=== PATIENT | female | born 1995 | race Caucasian/White ===

== ENCOUNTER 2017-07-13 07:31 | Emergency (ER) | payer OTHER ==
[~2017-07-13] VITALS: Ht 165.1 cm; Wt 78.2 kg
[2017-07-13] MEDS ORDERED: SODIUM CHLORIDE 0.9% 1,000 ML IV ONE (07:47)
[2017-07-13] MEDS ORDERED: SODIUM CHLORIDE FLUSH 10ML SYR IVF ONE (08:00)
[2017-07-13] MEDS ORDERED: ASPIRIN 81 MG TABLET CHEW PO ONE (08:00)
[2017-07-13 08:01] LABS: BASOPHILS # (AUTO) 0.01 x10^3/uL (0-0.3); BASOPHILS % (AUTO) 0 % (0-1); EOSINOPHILS # (AUTO) 0.23 x10^3/uL (0-0.8); EOSINOPHILS % (AUTO) 3 % (1-7); LYMPHOCYTES # (AUTO) 1.19 x10^3/uL (1-6.1); LYMPHOCYTES % (AUTO) 15 % (22-44); MD NO; MEAN CORPUSCULAR HEMOGLOBIN 28.2 pg (27.0-34.8); MEAN CORPUSCULAR HGB CONC 33.3 g/dL (32.4-35.8); MEAN CORPUSCULAR VOLUME 84.5 fL (80-100); MEAN PLATELET VOLUME 9.1 fL (7.4-10.4); MONOCYTES # (AUTO) 0.74 x10^3/uL (0-1.4); MONOCYTES % (AUTO) 10 % (2-9); NEUTROPHILS # (AUTO) 5.61 x10^3/uL (1.8-8.0); NEUTROPHILS % (AUTO) 72 % (42-75); PLATELET COUNT 203 x10^3/uL (130-400); RED BLOOD COUNT 4.42 x10^6/uL (3.82-5.3); RED CELL DISTRIBUTION WIDTH 14.9 % (9.6-15.2)
[2017-07-13 08:13] LABS: ALANINE AMINOTRANSFERASE 20 U/L (12-78); ALBUMIN 3.7 g/dL (3.4-5.0); ANION GAP 11 mmol/L (5-15); CALCIUM 8.6 mg/dL (8.5-10.1); CHLORIDE 107 mmol/L (98-107); CREATININE 0.78 mg/dL (0.55-1.02)
[2017-07-13 08:17] LABS: ALKALINE PHOSPHATASE 51 U/L (45-117); BILIRUBIN,TOTAL 0.3 mg/dL (0.2-1.0); TOTAL PROTEIN 7.2 g/dL (6.4-8.2)
[2017-07-13] MEDS ORDERED: KETOROLAC 30 MG/1 ML IVPush ONE (08:30)
[2017-07-13] MEDS ORDERED: KETOROLAC 30 MG/1 ML ONE (08:42)
[2017-07-13 09:02] LABS: MICROSCOPIC AUTO
[2017-07-13 09:04] LABS: CULTURE INDICATED? YES
[2017-07-13 09:42] LABS: TROPONIN I < 0.015 ng/mL (0.000-0.045)
[2017-07-13 10:40] VITALS: BP 104/68
== END 2017-07-13 10:54 | disposition home or self-care (01) ==
LOC: ED 08:33
DX: R07.89 Other chest pain (principal); M94.0 Chondrocostal junction syndrome [Tietze]; Z82.49 Family history of ischemic heart disease and other diseases of the circulatory system; R82.99 Other abnormal findings in urine
CPT/HCPCS: 36415; 71045; 80053; 81001; 83690; 84484; 84703; 85025; 85379; 87086; 93005; 96361; 96374; 99285; J1885; J7030

== ENCOUNTER 2020-07-12 08:20 | Emergency (ER) | payer SELFPAY ==
[~2020-07-12] VITALS: Ht 165.1 cm; Wt 81.0 kg
--- NOTE | 2020-07-12 08:55 | NUR ---
PT TO ROOM FROM TRIAGE. PT STATES THAT SHE IS 6-7 WEEKS AND HAS BEEN EXPERIENCING MODERATE TO SEVERE CRAMPING X1 WEEK. PT STATES THAT CRAMPING IS INTERMITTENT. PT DENIES ANY VAGINAL BLEEDING OR PAINFUL URINATION. PT DENIES ANY OTHER SYMPTOMS.
[2020-07-12 09:22] LABS: MICROSCOPIC NOT IND
[2020-07-12 09:25] LABS: BASOPHILS % (AUTO) 1 % (0-1); EOSINOPHILS % (AUTO) 3 % (1-7); LYMPHOCYTES % (AUTO) 28 % (22-44); MD NO; MEAN CORPUSCULAR HEMOGLOBIN 29.8 pg (27.0-34.8); MEAN CORPUSCULAR HGB CONC 34.8 g/dL (32.4-35.8); MONOCYTES % (AUTO) 8 % (2-9); NEUTROPHILS % (AUTO) 60 % (42-75); PLATELET COUNT 234 x10^3/uL (130-400); RED BLOOD COUNT 4.25 x10^6/uL (3.82-5.3); RED CELL DISTRIBUTION WIDTH 13.7 % (9.6-15.2)
--- NOTE | 2020-07-12 09:30 | NUR ---
Care assumed from meal break RN and pt waiting quietly in room without c/o.
[2020-07-12 09:35] LABS: ALANINE AMINOTRANSFERASE 22 U/L (12-78); ALBUMIN 3.7 g/dL (3.4-5.0); ANION GAP 9 mmol/L (5-15); CALCIUM 8.8 mg/dL (8.5-10.1); CHLORIDE 110 mmol/L (98-107); CREATININE 0.74 mg/dL (0.55-1.02)
[2020-07-12 09:52] LABS: ALKALINE PHOSPHATASE 55 U/L (45-117); BILIRUBIN,TOTAL 0.4 mg/dL (0.2-1.0)
--- NOTE | 2020-07-12 10:30 | NUR ---
Pt returning from US exam now.
--- NOTE | 2020-07-12 10:55 | NUR ---
Pt results reviewed and charted marked for recheck.
--- NOTE | 2020-07-12 11:05 | NUR ---
Note [email or web address] in ED - 07/12/20 at 1107 by ASHLEY Pt standing at sink using it to urinate then climbed back into bed before RN able to redirect. No injury, no fall, curtain open and as close to RN desk as possible in this room already. High fall risk measures discussed with pt.
--- NOTE | 2020-07-12 11:07 | NUR ---
Undone note on wrong pt.
[2020-07-12 11:44] VITALS: BP 94/40
== END 2020-07-12 11:47 | disposition home or self-care (01) ==
LOC: ED 09:30
DX: O26.891 Other specified pregnancy related conditions, first trimester (principal); R10.2 Pelvic and perineal pain; Z3A.01 Less than 8 weeks gestation of pregnancy; Z87.891 Personal history of nicotine dependence
CPT/HCPCS: 36415; 76700; 76801; 80053; 81003; 83690; 84702; 85025; 99285